=== PATIENT | male | born 1965 | race Caucasian/White ===

== ENCOUNTER → 2017-08-06 | Outpatient (CLI) | payer OTHER, MEDICAID | LOC: FIMAGING 14:25 | PROVIDERS: ATTEND Surgery | DX: I82.621 Acute embolism and thrombosis of deep veins of right upper extremity (principal); T82.868A Thrombosis due to vascular prosthetic devices, implants and grafts, initial encounter; N18.6 End stage renal disease ==

== ENCOUNTER 2017-08-15 07:29 | Day surgery (SDC) | payer OTHER, MEDICAID ==
--- NOTE | 2017-08-14 17:41 | GHP ---
[f rep st] HISTORY AND PHYSICAL DATE OF ADMISSION: 08/15/2017 CHIEF COMPLAINT: A thrombosed AV fistula. HISTORY OF PRESENT ILLNESS: The patient is a 52-year-old male with a previous AV fistula placement, patient of Dr. 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 He was referred back to the clinic today for persistent thrombosis of that AVF. The patient was last seen in this clinic last February, and at that time he had a matured AVF. Prior fistulogram on 07/30/2017 revealed complete occlusion of the AVF, and the patient underwent mechanical thrombectomy, as well as heparin and tPA infusions at [facility]. The clot burden was reportedly still heavy after taking these therapies, and so it was recommended that he be seen here to discuss AVF revision surgery. He is currently taking aspirin. Today, the patient denies fevers, chills, pain, decreased sensation or strength in the right upper extremity. PAST MEDICAL HISTORY: AV fistula occlusion. REVIEW OF SYSTEMS: A 10-point review of systems negative, except for as noted above in the HPI. PHYSICAL EXAM: GENERAL: Well-groomed, pleasant, nontoxic-appearing male. SKIN : Warm, dry. HEENT: Normocephalic, pupils equal, round. RESPIRATORY: No increased work of breathing. EXTREMITIES: No palpable thrill was appreciated, or bruits heard over the right brachiocephalic AV fistula, and there was a palpable right radial pulse of 2/2. Adequate peripheral perfusion. Negative for peripheral edema. MUSCULOSKELETAL: The patient presents in a wheelchair, full range of motion of extremities x4. NEURO: Alert, oriented. PSYCH: Mood and affect were normal. LABORATORY DATA: An office ultrasound revealed a few different options for new fistula placement. These options include proximal to the current fistula, or on the left arm, as the left cephalic was measured at 3 mm at the wrist. The left radial artery was noted to be somewhat calcified. IMPRESSION: The patient has an occluded right arteriovenous fistula that will require AV fistula revision surgery. PLAN: We briefly discussed the probable course of AV fistula revision surgery, including the 2-3 months before the fistula would be fully matured and ready to use for hemodialysis. /[id number]/MODL MTDD
[~2017-08-15 07:29] MED LIST: CLINDAMYCIN 900 MG/DEXTROSE 50 ML IV ONE
[2017-08-15] MEDS ORDERED: NS 1,000 ML IV ONE (08:11)
[2017-08-15] MEDS ORDERED: LIDOCAINE 1% 2 ML INJ ID PRN (08:11)
--- NOTE | 2017-08-15 08:12 | PDHPUP ---
History & Physical Update H&P update statement: This history and physical update is based on an assessment of the patient which was completed after admission or registration (within 24 hours), but prior to the surgery/procedure. H&P update: H&P reviewed & patient examined, no change in patient's condition since H&P completed
[2017-08-15 09:40] VITALS: PULSE 76
[2017-08-15 09:46] LABS: % IMMATURE GRANULYOCYTES 0.3 % (0.0-1.1); ABSOLUTE IMMATURE GRANULOCYTES 0.02 10^3/uL (0.00-0.10); ADD DIFF? NO; ADD MORPH? NO; ADD SCAN? NO; ATYPICAL LYMPHOCYTE FLAG 0 (0-99); FRAGMENT RBC FLAG 0 (0-99); LEFT SHIFT FLG 0 (0-99); LIPEMIA HEMOLYSIS FLAG 80 (0-99); MEAN CELL HEMOGLOBIN 29.9 pg (27.9-34.1); MEAN CELL VOLUME 93.3 fL (81.5-99.8); MEAN PLATELET VOLUME 9.5 fL (8.7-11.7); PLATELET CLUMPS FLAG 0 (0-99); PLATELET COUNT 243 10^3/uL (150-400); RED BLOOD CELL COUNT 2.68 10^6/uL (4.40-6.38); RED CELL DISTRIBUTION WIDTH 13.1 % (11.5-15.2)
[2017-08-15 10:02] LABS: ALANINE AMINOTRANSFERASE 35 IU/L (21-72); ALBUMIN 3.6 g/dL (3.5-5.0); ALKALINE PHOSPHATASE 137 IU/L (38-126); ANION GAP 14 mEq/L (8-16); ASPARTATE AMINOTRANSFERASE 16 IU/L (17-59); BILIRUBIN,TOTAL 0.3 mg/dL (0.1-1.4); CALCIUM 8.7 mg/dL (8.5-10.4); CARBON DIOXIDE 22 mEq/l (22-31); CHLORIDE 94 mEq/L (97-110); CREATININE 7.5 mg/dL (0.7-1.3); GLOMERULAR FILTRATION RATE 8; GLUCOSE 325 mg/dL (70-100); POTASSIUM 4.6 mEq/L (3.5-5.2); SODIUM 130 mEq/L (134-144); TOTAL PROTEIN 6.8 g/dL (6.3-8.2)
[2017-08-15] MEDS ORDERED: MIDAZOLAM 2 MG/2 ML VIAL IVP ONE (10:13)
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
[2017-08-15] MEDS ORDERED: fentaNYL 100 MCG/2 ML INJ ONE ×2 (10:18)
[2017-08-15] MEDS ORDERED: PROPOFOL 200 MG/20 ML VIAL ONE ×2 (10:18)
[2017-08-15] MEDS ORDERED: LIDOCAINE 2% 5 ML SDV ONE (10:19)
[2017-08-15] MEDS ORDERED: THROMBIN (BOVINE) 5,000 UNIT VIAL TP ONE (10:35)
[2017-08-15] MEDS ORDERED: NALOXONE HCL 0.4 MG/ML INJ IVP PRN (12:24)
[2017-08-15] MEDS ORDERED: ACETAMINOPHEN 500 MG TAB PO PRN (12:24)
[2017-08-15] MEDS ORDERED: ONDANSETRON 4 MG/2 ML VIAL IVP PRN (12:24)
[2017-08-15] MEDS ORDERED: fentaNYL 100 MCG/2 ML INJ IVP PRN (12:24)
[2017-08-15] MEDS ORDERED: ALBUTEROL 3 ML DEYVIAL IH PRN (12:24)
[2017-08-15] MEDS ORDERED: HYDROmorphONE/DILAUDID 1 MG/ML INJ IVP PRN (12:24)
[2017-08-15] MEDS ORDERED: NS 500 ML IV PRN (12:24)
[2017-08-15] MEDS ORDERED: PROMETHAZINE HCL 25 MG/ML INJ IVP PRN (12:24)
--- NOTE | 2017-08-15 12:43 | POSTOPPROG ---
Post Op Note Date of Operation: 08/15/17 Surgeon: Jonathan Fontanez Calculus Tutor: America Russ PAC Anesthesiologist: Asif Anesthesia: GET(General Endotracheal) Pre-op Diagnosis: Renal failure Post-op Diagnosis: Same Indication: Previous right AVF thrombosed, requiring new AVF for HD Procedure: Arteriovenous fistula creation with basilic vein transposition Findings: Calcified vessels Inf/Abcess present in the surg proc area at time of surgery?: No Depth: Deep Incisional (Fascial) EBL: Minimal Drains: Jese Camacho
--- NOTE | 2017-08-15 12:45 | POSTANESTH ---
Post Anesthetic Evaluation Cardiovascular Status: Normal, Stable Respiratory Status: Normal, Stable Level of Consciousness/Mental Status: Can Participate in Eval Pain Control: Adequate, Prn Tx Ordered Nausea/Vomiting Control: Adequate, Prn Tx Ordered Complications Possibly Related to Anesthesia: None Noted
[2017-08-15 13:29] VITALS: TEMP 97.7
[2017-08-15 13:50] LABS: ANION GAP 12 mEq/L (8-16); CALCIUM 8.8 mg/dL (8.5-10.4); CARBON DIOXIDE 22 mEq/l (22-31); CHLORIDE 94 mEq/L (97-110); GLOMERULAR FILTRATION RATE 8; GLUCOSE 397 mg/dL (70-100); SODIUM 128 mEq/L (134-144)
[2017-08-15 14:16] LABS: CREATININE 7.7 mg/dL (0.7-1.3)
[2017-08-15] MEDS ORDERED: [UNRECOGNIZED DRUG - OTHER] SC ONE (14:45)
[2017-08-15] MEDS ORDERED: INSULIN ASPART NovoLOG 70/30 100 UNITS/ML SYR SC ONE ×2 (15:00→15:45)
[2017-08-15 15:25] VITALS: RESP 18
[2017-08-15] MEDS ORDERED: ACETAMINOPHEN 500 MG TAB ONE (15:43)
[2017-08-15 17:07] VITALS: BP 159/70; O2SAT 98
--- NOTE | 2017-08-21 11:46 | GOP ---
[f rep st] OPERATIVE REPORT DATE OF OPERATION: 08/15/2017 SURGEON: Jonathan Fontanez MD BSS SOLUTION ARCHITECT: America Russ PA-C. ANESTHESIOLOGIST: Dr. Gold. PREOPERATIVE DIAGNOSIS: Chronic renal failure and diabetes. POSTOPERATIVE DIAGNOSIS: Chronic renal failure and diabetes. PROCEDURE PERFORMED: 1. Left arm ultrasound vein mapping. 2. A left basilic vein transposition arteriovenous fistula. FINDINGS: Patient was found to have an adequate brachial artery for initiating an AV fistula. His p revious old fistula was thrombosed. His basilic vein was quite adequate for mobilization for creatio n of a new fistula, and he had good flow to his hand following creation of the AV fistula. DESCRIPTION OF PROCEDURE: Patient was taken to the operating room where he received satisfactory gen eral endotracheal anesthesia by Dr. Gold. He was placed in supine position with his left arm out stretched on and arm board, prepped and draped in usual sterile fashion. Using ultrasound the veins were mapped in the arm. The best choice was his basilic vein in the upper arm in the forearm. He ramires d a cephalic vein which was 3 mm, but was occluded after only approximately 2 inches. It did not shon ear to be adequate for wrist AV fistula. In addition, his radial artery was quite calcified. Incision was made in the medial upper arm. Dissection extended down through subcu, down to the basil ic vein. This was carefully dissected free from near the base of the axilla, all the way down past t he antecubital space. Multiple branches were ligated and divided, allowing full mobilization of the basilic vein. It was eventually divided distal to the antecubital space, where it was ligated with 2 -0 silk tie. The vein was distended with heparin and saline, and appeared to be watertight. It was then transposed in a subdermal position more anteriorly in the arm, bringing it up and over to the br achial artery. Patient was then systemically heparinized, and an end-to-side anastomosis was created using a running 6-0 Prolene suture, creating a 1 cm anastomosis. Flow was first established to the AV fistula and then back down the hand. The suture line appeared to be hemostatic and the fistula fl ow was excellent, and the hand remained in good condition with no evidence of a steal syndrome. The wound was irrigated. Heparin was reversed with protamine. The wound was sprayed with some topical t hrombin. A 15 round silicone WILLIAM drain was brought out through a separate stab incision, secured to t he skin with a 3-0 silk suture. The wound was closed with a running 2-0 Vicryl suture for the subcut aneous tissue and skin angela for the skin, and infiltrated with 0.5% Marcaine. He tolerated the pr ocedure well. Taken to the recovery room in good condition. /[id number]/MODL
== END 2017-08-15 17:08 | disposition home or self-care (01) ==
LOC: FSGY 07:29
PROVIDERS: ATTEND Surgery
PROC: 03180ZD Bypass Left Brachial Artery to Upper Arm Vein, Open Approach (ICD-10-PCS; principal; 2017-08-15 09:45)
DX: T82.868A Thrombosis due to vascular prosthetic devices, implants and grafts, initial encounter (principal); N18.6 End stage renal disease; E10.22 Type 1 diabetes mellitus with diabetic chronic kidney disease; Y84.8 Other medical procedures as the cause of abnormal reaction of the patient, or of later complication, without mention of misadventure at the time of the procedure; Z79.4 Long term (current) use of insulin; Z87.891 Personal history of nicotine dependence
CPT/HCPCS: 82947-QW; J1815; J2250; J2704; J3010

== ENCOUNTER 2018-02-13 05:34 | Day surgery (SDC) | payer OTHER, MEDICAID ==
[2018-02-13] MEDS ORDERED: CLINDAMYCIN 900 MG/DEXTROSE 50 ML IV ONE (06:07)
[2018-02-13] MEDS ORDERED: LR 1,000 ML IV ONE (06:08)
[2018-02-13] MEDS ORDERED: LIDOCAINE 1% 2 ML INJ ID PRN (06:08)
[2018-02-13] MEDS ORDERED: NS 1,000 ML IV ONE (06:13)
[2018-02-13] MEDS ORDERED: THROMBIN (BOVINE) 20,000 UNIT SPRAY TP ONE (06:59)
[2018-02-13] MEDS ORDERED: PROTAMINE SULFATE 50 MG/5 ML VIAL IVP ONE (07:00)
[2018-02-13] MEDS ORDERED: PAPAVERINE HCL 60 MG/2 ML SDV ONE (07:00)
[2018-02-13] MEDS ORDERED: THROMBIN (BOVINE) 5,000 UNIT VIAL TP ONE (07:00)
[2018-02-13] MEDS ORDERED: BUPIVACAINE 0.5% 30 ML SDV ONE (07:00)
[2018-02-13] MEDS ORDERED: MIDAZOLAM 2 MG/2 ML VIAL IVP ONE (07:19)
[2018-02-13] MEDS ORDERED: MIDAZOLAM 2 MG/2 ML VIAL ONE (07:27)
[2018-02-13] MEDS ORDERED: fentaNYL 100 MCG/2 ML INJ ONE (07:33)
[2018-02-13] MEDS ORDERED: PROPOFOL 200 MG/20 ML VIAL ONE (07:33)
[2018-02-13] MEDS ORDERED: DEXAMETHASONE 4 MG/ML VIAL ONE (07:34)
[2018-02-13] MEDS ORDERED: LIDOCAINE 2% 5 ML SDV ONE (07:37)
[2018-02-13] MEDS ORDERED: METOCLOPRAMIDE 10 MG/2 ML VIAL ONE (07:50)
[2018-02-13] MEDS ORDERED: GLYCOPYRROLATE 0.2 MG/1 ML VIAL ONE ×3 (07:50→09:19)
[2018-02-13] MEDS ORDERED: ROCURONIUM 100 MG/10 ML VIAL ONE (07:51)
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
[2018-02-13] MEDS ORDERED: NEOSTIGMINE METHYLSULFATE 3 MG/3 ML SYR ONE (09:19)
[2018-02-13] MEDS ORDERED: ONDANSETRON 4 MG/2 ML VIAL IVP PRN (09:35)
[2018-02-13] MEDS ORDERED: fentaNYL 100 MCG/2 ML INJ IVP PRN (09:35)
[2018-02-13] MEDS ORDERED: NALOXONE HCL 0.4 MG/ML INJ IVP PRN ×2 (09:35→09:51)
--- NOTE | 2018-02-13 09:46 | POSTOPPROG ---
Post Op Note Date of Operation: 02/13/18 Surgeon: Shellie Chow Cupola Operator Insulation: Geraldo Anesthesiologist: Liam Anesthesia: GET(General Endotracheal) Pre-op Diagnosis: Chronic renal failure Post-op Diagnosis: same Indication: Inability to access AVF for dialysis Procedure: AVF revision Findings: 4+ edema in arm, AVF deep under adipose tissue, good thrill Inf/Abcess present in the surg proc area at time of surgery?: No Depth: Deep Incisional (Fascial) EBL: Minimal
[2018-02-13] MEDS ORDERED: LABETALOL HCL 5 MG/ML 20 ML MDV IVP PRN (09:51)
[2018-02-13] MEDS ORDERED: INSULIN LISPRO 100 UNIT/ML SC ONE ×2 (10:30→13:45)
[2018-02-13] MEDS ORDERED: ONDANSETRON 4 MG/2 ML VIAL ONE (12:01)
[2018-02-13] MEDS ORDERED: SODIUM POLY SULF 15 GM/60 ML BOTTLE PO ONE (13:29)
[2018-02-13] MEDS ORDERED: INSULIN GLARGINE 100 UNITS/ML UNIT SC SCH (13:30)
--- NOTE | 2018-02-13 14:18 | GCON ---
[f rep st] CONSULTATION DATE OF CONSULTATION: 02/13/2018 REFERRING PHYSICIAN: Jonathan Fontanez MD REASON FOR CONSULTATION: Diabetes management. HISTORY OF PRESENT ILLNESS: 52-year-old male with multiple comorbidities including end-stage renal disease on dialysis, hypertension, type 1 diabetes with nephropathy/retinopathy and nonischemic cardiomyopathy who underwent elective fistula AV transposition today. He did not take his normal Lantus or NovoLog this morning. Denies chest pain, shortness of breath, dizziness, or lightheadedness. No hematemesis, hematochezia, or melena. He had a tunneled catheter placed on Friday. The patient did not go to his normal dialysis session yesterday due to anxiety issues. His primary certified driver examiner is Dr. Prescott. Labs today revealed an H and H of 6.6 in 22, MCV 70.4, glucose was 400. REVIEW OF SYSTEMS: I completed a 10-point review of systems, negative except as noted in HPI. PAST MEDICAL HISTORY: 1. End-stage renal disease, Friday, , Friday. 2. Hypertension. 3. Type 1 diabetes complicated by nephropathy and retinopathy. 4. Nonischemic cardiopathy cardiomyopathy with EF 35%, last echo in 2010. 5. Anemia of kidney disease. 6. Peptic ulcer disease. 7. Chronic pancreatitis. 8. Sinusitis. 9. COPD. 10. GERD. 11. Chronic hypoxemic respiratory failure, on 3 L. PAST SURGICAL HISTORY: 1. Right ankle. 2. Cataract. 3. Left AV fistula, status post clot. 4. AV fistula with basilic transposition, November. MEDICATIONS: Sevelamer, ranitidine, omega-3 1000 mg, Reglan 5 mg, Lantus 25 units twice daily, did not take this morning, NovoLog 35 units before meals, Lasix 40 mg daily, Sobia, vitamin D3, Coreg, Tums, aspirin. ALLERGIES: Multiple, see medication reconciliation. PHYSICAL EXAMINATION: VITAL SIGNS: Temperature, afebrile, blood pressure 190s/ 86. GENERAL: Groggy from sedation, but answering questions appropriately. HEENT : PERRLA. EOMI. Oropharynx clear. CV: Regular rate and rhythm. LUNGS: Diminished at bases. ABDOMEN: Obese, soft, nontender, nondistended. MUSCULOSKELETAL: Left upper chest with tunneled dialysis catheter. Left upper extremity fistula with thrill. NEUROLOGIC: 2 through 12 intact. PSYCH: Alert and oriented x3. Agitated, mildly. LABORATORY: Sodium 136, potassium 5.2, chloride 95, carbon dioxide 25, anion gap 16, creatinine is 11.9. Glucose 320, repeat was 400. Total bilirubin 0.4, AST 26, ALT 45, alkaline phosphatase 152, total protein 6.8, hemoglobin 6.6, hematocrit 25, WBC 8.9, platelets 219. ASSESSMENT AND PLAN: 1. Type 1 diabetes with hyperglycemia: He did not take his normal Lantus or NovoLog dose this morning. Will resume Lantus 25 now plus an additional 10 units of regular insulin. 2. Microcytic anemia: Hemoglobin and hematocrit were 6.6 and 22. He denies hematochezia or bright red blood per rectum. He has not had recent studies in our records. He is followed closely by Renal. I will contact him. He is getting transfused 2 units of blood now. 3. Accelerated hypertension: Secondary to volume overload and not taking morning medications. We will resume these at home. 4. Mild hyperkalemia: Mildly elevated to 5.3. He missed dialysis yesterday due to "anxiety issues." I offered admission and possible dialysis today, but he declined. He said he will go to his normal chair in [place]. He was able to tell me the risks of hyperkalemia including heart stopping or , and acknowledges these risks. I will dose him with Kayexalate before he goes. 5. Cardiomyopathy: Resume Coreg. Not on an THERESA with end-stage renal disease. Continue Lasix. 6. Uremia: BUN is elevated at 74. This is secondary to missing dialysis again. He is scheduled tomorrow. Continue Renvela. 7. History of peptic ulcer disease: Denies any active bleeding. 8. Chronic hypoxemic respiratory failure: Resume home oxygen. 9. Chronic obstructive pulmonary disease. Continue oxygen. 10. Gastroesophageal reflux disease: Ranitidine. Disposition. I offered option of admission for telemetry and possible dialysis today. He declined. He understands the risk of arrhythmia or issues related to hyperkalemia. I will dose Kayexalate prior to him going. Also resume his home Lantus as well as an additional dose of short-acting here. Please call if any questions. /[id number]/MODL MTDD
[2018-02-13 15:31] VITALS: BP 179/90
[2018-02-13] MEDS ORDERED: INSULIN LISPRO humALOG 75/25 100 UNIT/ML SYR SC SCH (17:30)
--- NOTE | 2018-02-19 03:02 | GOP ---
[f rep st] OPERATIVE REPORT DATE OF OPERATION: 02/13/2018 SURGEON: Jonathan Fontanez MD ELECTRIC MOTORMAN: Shellie Chow NP. ANESTHESIOLOGIST: Sebastián Wheeler MD. PREOPERATIVE DIAGNOSIS: Chronic renal failure and difficulty accessing arteriovenous fistula. POSTOPERATIVE DIAGNOSIS: Chronic renal failure and difficulty accessing arteriovenous fistula. PROCEDURE PERFORMED: Arteriovenous fistula transposition. FINDINGS: Patient was found to have a well flowing brachiobasilic AV fistula which had previously be en transposed; however, it appeared to be too deep on the proximal segment for adequate access. DESCRIPTION OF PROCEDURE: Patient was taken to the operating room where he received satisfactory gen eral endotracheal anesthesia by Dr. Wheeler. He was placed in the supine position with the left arm outstretched on an arm board and prepped and draped in the usual sterile fashion. The veins of the arm were evaluated with ultrasound, and the AV fistula appeared to be wide open but deep. A long itudinal incision was made along the proximal portion of the AV fistula and dissection extended down to the previous arterial anastomosis exposing the proximal 3-1/2 inches of the AV fistula. The fistu la was dissected free and encircled with vessel loops and completely freed up from its subcutaneous p osition. The subcu above this area was resected, and subcu flaps were created and passed underneath the AV fistula and sutured with 3-0 Vicryl sutures leaving the fistula and just a minimal amount of s ubcu and skin that was closed with interrupted 3-0 Vicryl sutures and a running 4-0 Monocryl suture a nd Steri-Strips. He tolerated the procedure well. He maintained a good excellent flow in his fistul a. The wound was dressed. He was taken to recovery room in satisfactory condition. There were no c omplications. /[id number]/MODL
== END 2018-02-13 15:23 | disposition home or self-care (01) ==
LOC: FSGY 05:34 → EEVIPCON 07:15 → FSGY 15:23
PROVIDERS: ATTEND Surgery
PROC: 05WY07Z Revision of Autologous Tissue Substitute in Upper Vein, Open Approach (ICD-10-PCS; principal; 2018-02-13 07:30)
DX: T82.590A Other mechanical complication of surgically created arteriovenous fistula, initial encounter (principal); N18.6 End stage renal disease; E10.65 Type 1 diabetes mellitus with hyperglycemia; E10.22 Type 1 diabetes mellitus with diabetic chronic kidney disease; E10.319 Type 1 diabetes mellitus with unspecified diabetic retinopathy without macular edema; E10.21 Type 1 diabetes mellitus with diabetic nephropathy; E87.5 Hyperkalemia; E87.70 Fluid overload, unspecified; I42.0 Dilated cardiomyopathy; D63.1 Anemia in chronic kidney disease; J96.11 Chronic respiratory failure with hypoxia; I25.2 Old myocardial infarction; J44.9 Chronic obstructive pulmonary disease, unspecified; I25.10 Atherosclerotic heart disease of native coronary artery without angina pectoris; K21.9 Gastro-esophageal reflux disease without esophagitis; G43.909 Migraine, unspecified, not intractable, without status migrainosus; E66.9 Obesity, unspecified; Z68.41 Body mass index [BMI] 40.0-44.9, adult; G47.30 Sleep apnea, unspecified; F41.9 Anxiety disorder, unspecified; F43.10 Post-traumatic stress disorder, unspecified; Y84.8 Other medical procedures as the cause of abnormal reaction of the patient, or of later complication, without mention of misadventure at the time of the procedure; Z79.4 Long term (current) use of insulin; Z87.891 Personal history of nicotine dependence; Z87.442 Personal history of urinary calculi; Z99.2 Dependence on renal dialysis; Z76.82 Awaiting organ transplant status
CPT/HCPCS: 36832; P9016; J1100; J1644; J1815; J2250; J2405; J2440; J2704; J2710; J2720; J2765; J3010